=== PATIENT | male | born 1960 | race Caucasian/White ===

== ENCOUNTER → 2018-03-07 08:14 | Outpatient (CLI) | payer OTHER, SELFPAY ==
[2018-03-07 10:51] LABS: Alanine Aminotransferase 32 IU/L (21-72); Albumin 4.4 g/dL (3.5-5.0); Albumin Globulin Ratio 1.6 (1.0-2.8); Alkaline Phosphatase 76 U/L (38-126); Aspartate Aminotransferase 30 IU/L (17-59); BUN Creatinine Ratio 21.4 (6-22); Bilirubin Total 0.7 mg/dL (0.2-1.3); Blood Urea Nitrogen 15 mg/dL (9-20); Calcium 8.9 mg/dL (8.4-10.2); Carbon Dioxide 27 mmol/L (22-32); Chloride 104 mmol/L (98-107); Cholesterol 163 mg/dL (140-199); Estimated Glomerular Filt Rate > 60.0 mL/min (>60); Globulin 2.7 g/dL (1.7-4.1); Glucose 94 mg/dL (70-100); HDL Cholesterol 40 mg/dL (40-60); HEMOLYSIS < 15 (0-50); LDL Cholesterol Calculated 105 mg/dL (<100); Potassium 4.6 mmol/L (3.4-5.1); Sodium 143 mmol/L (137-145); Total Protein 7.1 g/dL (6.3-8.2); Triglycerides 91 mg/dL (35-150)
[2018-03-07 11:00] LABS: Free T3, Triiodothyronine Free 3.51 pg/mL (2.77-5.27); Free T4, Direct Thyroxine 1.07 ng/dL (0.78-2.19)
[2018-03-07 11:13] LABS: Thyroid Stimulating Hormone 2.11 uIU/mL (0.47-4.68)
== END ==
PROVIDERS: PCP Family Medicine; Visit Provider Family Medicine
DX: G56.03 Carpal tunnel syndrome, bilateral upper limbs (principal); E78.5 Hyperlipidemia, unspecified; G56.00 Carpal tunnel syndrome, unspecified upper limb; R79.89 Other specified abnormal findings of blood chemistry
CPT/HCPCS: 80053; 80061; 84439; 84443; 84481

== ENCOUNTER → 2018-07-22 08:33 | Outpatient (CLI) | payer OTHER, SELFPAY ==
--- NOTE | 2018-07-22 08:35 | DI.RAD.S_ITS ---
PROCEDURE: XR KNEE LT 3V INDICATIONS: Osteoarthritis of knees TECHNIQUE: 3 views of the knee were acquired. COMPARISON: [facility], CR, XR KNEE RT 3V, 07/22/2018, 8:40. FINDINGS: Bones: No fractures or dislocations. No suspicious bony lesions. There is a moderate degree of medial compartment degenerative knee joint osteoarthritis on the left, slightly greater than the right knee degenerative change in the same area from plain film imaging on the right obtained also today. Soft tissues: No joint effusion. No suspicious soft tissue calcifications. IMPRESSION: Moderate degenerative medial compartment knee joint osteoarthritis, slightly greater on the left than the appearance of the same area on the right. Dictated by: Donald Pantoja M.D. on 07/22/2018 at 10:01 Approved by: Donald Pantoja M.D. on 07/22/2018 at 10:03
--- NOTE | 2018-07-22 08:35 | DI.RAD.S_ITS ---
PROCEDURE: XR KNEE RT 3V INDICATIONS: Osteoarthritis of knees TECHNIQUE: 3 views of the knee were acquired. COMPARISON: [facility], CR, KNEE 3VW (RT), 10/28/2013, 13:50. [facility], CR, XR KNEE LT 3V, 07/22/2018, 8:40. FINDINGS: Bones: No fractures or dislocations. No suspicious bony lesions. There is mild to moderate degenerative medial compartment knee joint osteoarthritis, equivalent to that present on a comparison set of plain film imaging from 10/28/13. Also, knee plain films on the left from today show a slightly greater degree of medial compartment left knee joint osteoarthritis. Soft tissues: No joint effusion. No suspicious soft tissue calcifications. IMPRESSION: Mild to moderate medial compartment knee joint osteoarthritis slightly less prominent than that noted at the medial compartment of the left knee also obtained today. No change with reference to the comparison right knee plain films from September of 2013. Dictated by: Donald Pantoja M.D. on 07/22/2018 at 10:03 Approved by: Donald Pantoja M.D. on 07/22/2018 at 10:05
== END ==
PROVIDERS: PCP Family Medicine; Visit Provider Family Medicine
DX: M17.0 Bilateral primary osteoarthritis of knee (principal)
CPT/HCPCS: 73562

== ENCOUNTER → 2019-04-13 08:11 | Outpatient (CLI) | payer OTHER, SELFPAY ==
[2019-04-13 08:50] LABS: Add Manual Diff / Slide Review NO; Basophils Absolute Auto 0 /uL (0-100); Basophils Percent Auto 0.5 % (0-2); Eosinophils Absolute Auto 200 /uL (0-450); Hematocrit 43.9 % (41-53); Hemoglobin 15.2 g/dL (13.5-17.5); Lymphocytes Absolute Auto 1700 /uL (1100-4500); Lymphocytes Percent Auto 24.5 % (25-40); Mean Corpuscular HGB Conc 34.7 % (30-36); Mean Corpuscular Hemoglobin 32.2 PG (26-34); Mean Corpuscular Volume 92.9 fL (80-100); Monocytes Absolute Auto 500 /uL (0-900); Monocytes Percent Auto 7.5 % (3-14); Neutrophils Absolute Auto 4500 /uL (1500-7000); Neutrophils Percent Auto 64.5 % (50-75); Platelet Count 271 X10^3/uL (150-400); Red Blood Cell Count 4.72 X10^6/uL (4.5-5.9); Red Cell Distribution Width 12.5 % (11.6-14.8)
[2019-04-13 09:12] LABS: Alanine Aminotransferase 40 IU/L (<50); Albumin 4.3 g/dL (3.5-5.0); Albumin Globulin Ratio 1.9 (1.0-2.8); Alkaline Phosphatase 93 U/L (38-126); Aspartate Aminotransferase 40 IU/L (17-59); BUN Creatinine Ratio 24.3 (6-22); Bilirubin Total 0.7 mg/dL (0.2-1.3); Blood Urea Nitrogen 17 mg/dL (9-20); Calcium 9.3 mg/dL (8.4-10.2); Carbon Dioxide 27 mmol/L (22-32); Chloride 104 mmol/L (98-107); Cholesterol 194 mg/dL (140-199); Estimated Glomerular Filt Rate > 60.0 mL/min (>60); Globulin 2.3 g/dL (1.7-4.1); Glucose 98 mg/dL (80-110); HDL Cholesterol 43 mg/dL (40-60); HEMOLYSIS < 15 (0-50); LDL Cholesterol Calculated 121 mg/dL (<100); Potassium 4.9 mmol/L (3.4-5.1); Sodium 139 mmol/L (137-145); Total Protein 6.6 g/dL (6.3-8.2); Triglycerides 149 mg/dL (35-150)
[2019-04-13 09:42] LABS: Prostate Specific Antigen Scrn 1.32 ng/mL (0.1-4.0)
[2019-04-13 10:02] LABS: Appearance Urine UA CLEAR; Bilirubin Urine UA NEGATIVE (NEGATIVE); Color Urine UA YELLOW; Glucose Urine UA NEGATIVE (Negative); Ketones Urine UA NEGATIVE (NEGATIVE); Leukocyte Esterase Urine UA NEGATIVE (NEGATIVE); Nitrite Urine UA NEGATIVE (Negative); Occult Blood Urine UA NEGATIVE (Negative); Protein Urine UA NEGATIVE (Negative); Specific Gravity Urine UA 1.015 (1.000-1.035); Urobilinogen Urine UA 0.2 E.U./dL (0.2)
== END ==
PROVIDERS: PCP Family Medicine; Visit Provider Family Medicine
DX: Z51.81 Encounter for therapeutic drug level monitoring (principal); Z12.5 Encounter for screening for malignant neoplasm of prostate; E66.9 Obesity, unspecified; E78.5 Hyperlipidemia, unspecified
CPT/HCPCS: 36415; 80053; 80061; 81003; 84443; 85025; G0103

== ENCOUNTER → 2019-05-24 11:12 | Outpatient (CLI) | payer OTHER, SELFPAY | PROVIDERS: PCP Family Medicine; Visit Provider Family Medicine | DX: I10 Essential (primary) hypertension (principal) | CPT/HCPCS: 93005 ==

== ENCOUNTER → 2019-10-27 09:52 | Outpatient (CLI) | payer OTHER, SELFPAY ==
[2019-10-27 11:01] LABS: Hemoglobin A1C% w Est Avg Glu 5.6 % (4.0-6.0)
[2019-10-27 11:02] LABS: BUN Creatinine Ratio 23.6 (6-22); Blood Urea Nitrogen 17 mg/dL (9-20); Calcium 9.6 mg/dL (8.4-10.2); Carbon Dioxide 28 mmol/L (22-32); Chloride 103 mmol/L (98-107); Cholesterol 162 mg/dL (140-199); Estimated Glomerular Filt Rate > 60.0 mL/min (>60); Glucose 106 mg/dL (80-110); HDL Cholesterol 38 mg/dL (40-60); HEMOLYSIS < 15 (0-50); LDL Cholesterol Calculated 75 mg/dL (<100); Potassium 4.3 mmol/L (3.4-5.1); Sodium 139 mmol/L (137-145); Triglycerides 246 mg/dL (35-150)
== END ==
PROVIDERS: PCP Student in an Organized Health Care Education/Training Program; Referring Provider Student in an Organized Health Care Education/Training Program; Visit Provider Student in an Organized Health Care Education/Training Program
DX: E66.01 Morbid (severe) obesity due to excess calories (principal); E78.5 Hyperlipidemia, unspecified; I10 Essential (primary) hypertension; Z79.1 Long term (current) use of non-steroidal anti-inflammatories (NSAID)
CPT/HCPCS: 36415; 80048; 80061; 83036

== ENCOUNTER → 2019-12-26 13:24 | Outpatient (CLI) | payer OTHER, SELFPAY ==
[2019-12-28 01:40] LABS: COVID19 Sendout Not Detected (Not Detect)
== END ==
PROVIDERS: PCP Student in an Organized Health Care Education/Training Program; Visit Provider Physician Assistant
DX: Z01.818 Encounter for other preprocedural examination (principal)
CPT/HCPCS: 87635

== ENCOUNTER 2019-12-29 10:49 | Day surgery (SDC) | payer OTHER, SELFPAY ==
--- NOTE | 2019-12-29 | PATH_ITS ---
[facility] [place] Accession Number: [id number] . 01 Material submitted: . PART A: cecum - CECAL POLYP PART B: colon - ASCENDING COLON POLYPS PART C: colon - TRANSVERSE COLON POLYPS . 01 Clinical history: . C: TRANSVERSE COLON POLYPS X2 . 02 Diagnosis: A. Cecum, Polyp, Biopsy: Tubular adenoma. . B. Ascending Colon, Polyps, Biopsies: Colonic mucosa with a small benign lymphoid aggregate and no other diagnostic abnormality. Additional levels were examined. . C. Transverse Colon, Polyps x2, Biopsies: Tubular adenoma. Sessile serrated adenoma. V 01/03/2020 1259 Local . 02 Electronically signed: . Marie Quintero MD, Pathologist NPI- [id number] . 01 Gross description: . Part A: CECAL POLYP: Received in formalin is 1 fragment(s) of cardenas, soft tissue measuring 0.4 x 0.3 x 0.1 cm submitted entirely in 1 cassette(s) Part B: ASCENDING COLON POLYPS: Received in formalin is 1 fragment(s) of cardenas, soft tissue measuring 0.7 x 0.3 x 0.1 cm submitted entirely in 1 cassette(s) Part C: TRANSVERSE COLON POLYPS: Received in formalin are 2 fragment(s) of cardenas, soft tissue measuring 1.0 x 0.4 x 0.2 cm to 0.7 x 0.2 x 0.2 cm submitted entirely in 1 cassette(s) /QBJ 12/30/2019 0756 Local . 02 Pathologist provided ICD-10: D12.0, D12.3 . 02 CPT . 835257, 753469, 216455 Performed at: [address] [address], [place], [place] [id number] MD Harinder Cobos MD Phone: [phone] Performed at: 02 [facility] [address] [place] [id number] MD Marie Quintero MD Phone: [phone]
--- NOTE | 2019-12-29 10:43 | PM.HP.1 ---
History of Present Illness History of Present Illness Date Patient Seen: 12/29/19 Chief complaint: SDC Narrative: 59-year-old male who was seen by 1 of our providers on 12/02/2019 for preop evaluation prior to undergoing colon cancer screening. Please refer to that note for further details he has no new acute symptoms. He has no family history of colon cancer Patient History Medical History (Updated 10/28/19 @ 15:54 by Deon Burgess MD) Acne (Resolved Unknown) Anger (Resolved 1999) Ankle pain (Resolved Unknown) Carpal tunnel syndrome (Resolved Unknown) Chronic back pain (Chronic Unknown) Foot pain (Resolved Unknown) Fractures (Resolved Unknown) H/O tinnitus (Chronic Unknown) Hearing loss (Chronic ) Hemorrhoids (Resolved 1975) Herpes (Chronic ) Hyperlipemia (Chronic ) Measles (Resolved 1964) Melanoma (Resolved 1958) Mumps (Resolved 1964) PTSD (post-traumatic stress disorder) (Chronic 1999) Surgical History S/P tonsillectomy and adenoidectomy (Resolved Unknown) S/P UPPP (uvulopalatopharyngoplasty) (Resolved 1992) Status post appendectomy Family & Social History Family History (Updated 02/29/16 @ 00:00 by Conversion Provider) Father Diabetes mellitus Heart disease Hypertension Mother Age: 77 Memory loss Hypertension Stroke Brain aneurysm Tobacco & Substance use: Smoking Status Former smoker alcohol intake current Meds Home Medications and Allergies Home Medications Medication Instructions Recorded Confirmed Type naproxen sodium [Aleve] 220 mg PO BIDCC #0 tab 02/28/16 10/27/19 History multivitamin,[id number] 1 tab PO DAILY 09/14/18 10/27/19 History hydrochlorothiazide 25 mg tablet 25 mg PO DAILY #90 tab 11/19/19 Rx simvastatin 20 mg tablet 20 mg PO HS #90 tab 11/19/19 Rx Allergies Allergy/AdvReac Type Severity Reaction Status Date / Time No Known Drug Allergies Allergy Verified 12/29/19 11:13 Exam Narrative Exam Narrative: General: Patient is obese, not in apparent distress Cardiovascular: Regular rate and rhythm, no murmurs, rubs, or gallops; no evidence of edema; no palpable abdominal aortic aneurysm Gastrointestinal: Normoactive bowel sounds, soft, nontender, nondistended, no rebound tenderness, no hepatosplenomegaly, no evidence of hernia Assessment & Plan Assessment & Plan narrative: 59-year-old male who is here for average risk colon cancer screening Regarding the procedure(s), the risks and potential complications, benefits, and alternatives (including not doing the procedure) were discussed with the patient. The risks include but are not limited to bleeding, splenic injury, infection, perforation which may require surgical intervention, missed lesions, and adverse reactions to sedative medicines. After a question and answer period, the patient agreed to proceed with the procedure(s) and gives informed consent.
[2019-12-29 11:14] VITALS: BP 118/76; PULSE 70; RESP 16; TEMP 36.7; O2SAT 95; BMI 42.0
[2019-12-29] MEDS: SODIUM CHLORIDE 0.9% 1,000 ML 70 ML IV (11:30)
--- NOTE | 2019-12-29 12:46 | P.OP.ENDO_ITS ---
Operative Date/Time/Diagnoses Date of procedure: 12/29/19 Procedure Notes Procedure in detail: Surgeon: Michael Beckford MD Procedure: Colonoscopy with polypectomy Preoperative diagnosis: Colon cancer screening Postoperative diagnosis: Colon polyps x4 status post polypectomy; grade 2 i nternal hemorrhoids Medications: Conscious sedation using 4 mg IV of Midazolam and 100 mcg IV of Fentanyl Preanesthesia Assessment An H and P was performed/updated and the Px?s ASA class is 2. The procedure was discussed in detail with the patient. The potential risks and complications including infection, bleeding, missed lesions, perforation, need for surgery in case of perforation, prolonged hospital stay, and were explained. A brief question and answer period was allotted and once all questions were answered, informed consent was obtained. The patient was brought back to the procedure room and placed on standard monitoring. The patient?s vital signs were monitored continuously throughout the entire procedure. Prior to starting, a timeout was performed to confirm the patient?s identity, allergies, medications, and procedure. Procedure in detail The patient was placed in left lateral decubitus position and once adequate sedation was obtained a BRANNON was performed. Perineal examination revealed external hemorrhoids. The digital rectal examination did not reveal any palpable masses. The tip of the colonoscope was placed in the anal canal and advanced without difficulty all the way to the cecum which was identified by the appendiceal orifice and the ileocecal valve. Careful examination of all last of the colon was performed with irrigation of any residual stool. In the cecum, a 4 mm sessile polyp was removed by means of cold snare with minimal bleeding. Resection and retrieval was complete. In the ascending colon, a 2 mm polyp was removed by means of cold Jumbo forceps. Resection and retrieval was complete In the transverse colon, 2 sessile polyps measuring 4 mm and 6 mm were removed by means of cold snare with minimal bleeding. Resection and retrieval was complete. Retroflexion was performed in the rectum which revealed grade 2 internal hemorrhoids. The patient tolerated the procedure well and will be brought back to the recovery area to be discharged once criteria are met. The prep was judged to be good and adequate to identify polyps less than 5 mm. The withdrawal time was 15 minutes. The total physician intraservice time was 23 minutes. Complications There were no complications and estimated blood loss was minimal. Recommendations: Resume previous diet Continue outPx medications Follow up pathology results Repeat colonoscopy in 3 years. This may change depending on the results of the biopsies An emergency contact number was given to the patient for any complications related to the procedure
[2019-12-29] MEDS: fentaNYL 250 MCG/5 ML INJ IV (12:48)
[2019-12-29] MEDS: MIDAZOLAM 5 MG/5 ML VIAL IV (12:48)
[2019-12-29 13:15] VITALS: BP 114/72; PULSE 62; RESP 14; TEMP 35.8; O2SAT 97
[2019-12-29 13:19] VITALS: BP 106/70; PULSE 62; RESP 14; TEMP 35.9; O2SAT 97
[2019-12-29 13:27] VITALS: BP 110/70; PULSE 60; RESP 14; TEMP 35.7; O2SAT 96
[2019-12-29 13:28] VITALS: BP 113/74; PULSE 59; RESP 12; TEMP 36; O2SAT 97
== END 2019-12-29 13:49 | disposition home or self-care (01) ==
PROVIDERS: PCP Student in an Organized Health Care Education/Training Program; Referring Provider Internal Medicine Gastroenterology; Visit Provider Internal Medicine Gastroenterology
PROC: 0DJD8ZZ Inspection of Lower Intestinal Tract, Via Natural or Artificial Opening Endoscopic (ICD-10-PCS; CPT 45378; principal; 2019-12-29 13:00)
DX: Z12.11 Encounter for screening for malignant neoplasm of colon (principal); K64.1 Second degree hemorrhoids; D12.0 Benign neoplasm of cecum; D12.3 Benign neoplasm of transverse colon
CPT/HCPCS: 45385; 45380; J2250; J3010

== ENCOUNTER → 2020-11-09 09:38 | Outpatient (CLI) | payer OTHER, SELFPAY ==
[2020-11-09 11:00] LABS: BUN Creatinine Ratio 20.5 (6-22); Blood Urea Nitrogen 16 mg/dL (9-20); Calcium 9.6 mg/dL (8.4-10.2); Carbon Dioxide 29 mmol/L (22-32); Chloride 103 mmol/L (98-107); Estimated Glomerular Filt Rate > 60.0 mL/min (>60); Glucose 104 mg/dL (80-110); HEMOLYSIS < 15 (0-50); Potassium 4.9 mmol/L (3.4-5.1); Sodium 138 mmol/L (137-145)
[2020-11-09 11:26] LABS: Prostate Specific Antigen Scrn 0.699 ng/mL (0.1-4.0)
== END ==
PROVIDERS: PCP Student in an Organized Health Care Education/Training Program; Referring Provider Student in an Organized Health Care Education/Training Program; Visit Provider Student in an Organized Health Care Education/Training Program
DX: I10 Essential (primary) hypertension (principal); Z12.5 Encounter for screening for malignant neoplasm of prostate
CPT/HCPCS: 36415; 80048; G0103